=== PATIENT | male | born 1950 | race Caucasian/White ===

== ENCOUNTER → 2016-11-26 | Outpatient (CLI) | payer MEDICARE, MEDICAID ==
[~2016-11-26] MED LIST: AMLO10TA57 PO; ATEN-36 PO; CLON0.5T62 PO; GEMF600T26 PO; GLYB-66 PO; OMEP20CA81 PO; PRAV40TA46 PO; RANI-45 PO; RISP0.5T12 PO; SERT-88 PO
--- NOTE | 2016-11-26 17:00 | DI ---
Indication: ITS.REASON: M25.511 RIGHT SHOULDER PAIN PROCEDURE: MRI SHOULDER RIGHT W/O CONTRAS: Encounter: Initial Comparison: None Technique: Multiplanar multisequence MR imaging of the right shoulder was performed without contrast. Findings: Exam is severely limited due to motion artifact. Long head biceps tendon appears grossly intact and located within the bicipital groove. Subscapularis tendon shows some increased T2 signal intensity distally without full-thickness tear. There is a small rim rent tear of the distal supraspinatus tendon best seen on coronal image #10. No full-thickness or complete tear. The infraspinatus tendon is intact. Teres minor tendon is normal. No acute fracture. Moderate acromioclavicular degenerative change. Trace fluid in the subacromial subdeltoid bursa. Tearing of the posterior inferior labrum. Muscular signal intensity is grossly normal. Impression: Severely limited exam due to motion artifact. 1. Rim rent tear of the supraspinatus. 2. Partial tearing of the subscapularis. 3. Posterior inferior labral tearing. .
== END ==
LOC: IMA 15:33
PROVIDERS: ATTEND Family Medicine Sports Medicine
DX: S46.011A Strain of muscle(s) and tendon(s) of the rotator cuff of right shoulder, initial encounter (principal); X58.XXXA Exposure to other specified factors, initial encounter; Y93.9 Activity, unspecified; Y92.9 Unspecified place or not applicable; Y99.9 Unspecified external cause status; S43.491A Other sprain of right shoulder joint, initial encounter; M25.511 Pain in right shoulder

== ENCOUNTER → 2016-12-30 | Outpatient (CLI) | payer MEDICARE, MEDICAID ==
[2016-12-30 07:21] LABS: HEMOGLOBIN A1C 5.7 % (6.1-7.9)
[2016-12-30 07:24] LABS: ANION GAP 13 MEQ/L (5-15); BUN/CREATININE RATIO 33 RATIO (6-26); CALCIUM 9.4 MG/DL (8.4-10.2); CHLORIDE 102 MEQ/L (98-107); CO2 - CARBON DIOXIDE 32 MEQ/L (22-30); CREATININE 0.7 MG/DL (0.8-1.5); GLOMERULAR FILTRATION RATE 114; GLUCOSE 112 MG/DL (75-110); POTASSIUM 3.7 MEQ/L (3.6-5); SODIUM 147 MEQ/L (134-144)
== END ==
LOC: LABNH.PM 00:23
PROVIDERS: ATTEND Family Medicine
DX: E11.9 Type 2 diabetes mellitus without complications (principal)
CPT/HCPCS: 36415; 80048; 83036; P9604